=== PATIENT | female | born 1940 | race Caucasian/White ===

== ENCOUNTER → 2016-12-30 12:11 | Outpatient (CLI) | payer MEDICARE ==
[2016-01-10 09:13] VITALS: BMI 31.5
--- NOTE | ~2016-12-30 | EEG ---
PATIENT:ELIZABETH NAZARIO DATE OF SERVICE: 12/30/16 MEDICAL RECORD: [id number] DATE OF : 44 LOCATION: [facility] ADMISSION DATE: 12/30/16 REFERRING PHYSICIAN: INTERPRETING PHYSICIAN: DEBORAH EUCEDA MD DATE OF SERVICE: 12/31/2016 Referred by myself as an outpatient. ELECTROENCEPHALOGRAM NUMBER: [id number] DATE OF EXAMINATION: 12/30/2016 at 1:40 p.m. TECHNICAL DATA: This electroencephalographic recording consists of approximately 20 minutes of data collection utilizing the international 10/20 system of electrode placement and both referential and non-referential montages. Sixteen channels of electrocerebral recording are accompanied by a 17th channel dedicated to the electrocardiographic rhythm and 2 channels of electromyographic recording. Recording is performed in the awake and drowsy states utilizing activation by photic stimulation. ELECTROENCEPHALOGRAPHIC DATA: The awake state comprises approximately 30% of the recorded electrocerebral activity. Electromyographic artifact is prominent and rapid eye movements are seen. The posterior dominant background consists of a well-developed, symmetric, rhythmic, waxing and waning alpha activity of 7-8 Hz, which is suppressed by eye opening. The drowsy state comprises the remaining portion of the recorded electrocerebral activity. Electromyographic artifact is diminished and rapid eye movements are not seen. Also seen is an intermittent irregular generalized and symmetric 2-3 Hz delta slowing, which occurs for periods of 1-2 seconds approximately once every 1-2 pages. No abnormal or focal slowing is identified. No epileptiform discharges are seen. Photic stimulation induces no abnormal change in the recorded electrocerebral activity. INTERPRETATION: Normal (awake and drowsy). This is a normal electroencephalographic recording. TRANSINT:[id number] Voice Confirmation ID: [id number] DOCUMENT ID: [id number] DEBORAH EUCEDA MD CC: [id number] DICTATION DATE: 12/31/16 0654 [employer] SUPERVISOR: 12/31/16 0714 [facility] CLI 12/30/16 [place] [id number]
[~2016-12-30 12:11] MED LIST: BAYER CHEWABLE81 MG PO; BUPROPION HCL100 MG PO; CATAPRES0.1 MG PO; ESTRACE 0.5 MG0.5 MG PO; ISOSORBIDE MONO30 M1 PO; K-TAB10 MEQ PO; KLONOPIN1 MG PO; LASIX40 MG PO; LEVOXYL50 MCG PO; LOPID600 MG PO; MYSOLINE 50 MG50 MG PO; NEURONTIN 300300 MG PO; NIFEDICAL30 MG/BOTT PO; PHENAZOPYRIDIN100 MG; PLAVIX75 MG PO; PRINIVIL20 MG PO; PROTONIX40 MG PO; RITALIN5 MG PO; TOPROL XL25 MG PO; TOPROL XL50 MG PO; ULTRAM50 MG PO; ZOCOR40 MG PO
== END | disposition home or self-care (01) ==
LOC: D.CN 10:00
DX: G25.0 Essential tremor (principal); G40.101 Localization-related (focal) (partial) symptomatic epilepsy and epileptic syndromes with simple partial seizures, not intractable, with status epilepticus

== ENCOUNTER → 2017-03-20 18:38 | Outpatient (CLI) | payer MEDICARE ==
[2016-01-10 09:13] VITALS: BMI 31.5
== END | disposition home or self-care (01) ==
LOC: D.MAMMO 03-19 13:00
DX: Z12.31 Encounter for screening mammogram for malignant neoplasm of breast (principal)

== ENCOUNTER → 2017-09-25 08:12 | Outpatient (CLI) | payer MEDICARE ==
[2016-01-10 09:13] VITALS: BMI 31.5
== END | disposition home or self-care (01) ==
LOC: D.US 08:12
DX: R59.9 Enlarged lymph nodes, unspecified (principal)

== ENCOUNTER → 2019-03-18 09:00 | Outpatient (CLI) | payer MEDICARE ==
[2016-01-10 09:13] VITALS: BMI 31.5
== END | disposition home or self-care (01) ==
LOC: D.MAMMO 09:00
PROVIDERS: ATTEND Emergency Medicine
DX: Z12.31 Encounter for screening mammogram for malignant neoplasm of breast (principal)

== ENCOUNTER 2019-04-23 08:00 | Outpatient (CLI) | payer MEDICARE ==
[2016-01-10 09:13] VITALS: BMI 31.5
== END 2019-04-23 23:59 | disposition home or self-care (01) ==
LOC: D.MAMMO 08:00
PROVIDERS: ATTEND Emergency Medicine
DX: R92.8 Other abnormal and inconclusive findings on diagnostic imaging of breast (principal)